=== PATIENT | male | born 1990 | race Caucasian/White ===

== ENCOUNTER → 2019-05-15 12:25 | Outpatient (CLI) | payer SELFPAY ==
[2019-05-15 12:54] VITALS: BP 106/68; PULSE 75; RESP 16; TEMP 36.8; O2SAT 97; BMI 22.6
--- NOTE | 2019-05-15 13:18 | HTC.HP3 ---
Problem List (1) Hemophilia B in male Status: Chronic Subjective Date of Service:: 05/15/19 Chief Complaint: F/u for Hemophilia B. History of Present Illness: 29y.o.man with hemophilia B, comes in for follow up. Did not use any factor replacement in the last year. Feels well, no dental problems. 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 (Acute) Past Surgical History (Last Reviewed 05/15/19 @ 12:52 by Patsy Brown) No history of previous surgery (Acute) Allergies/Adverse Reactions: Allergy/AdvReac Type Severity Reaction Status Date / Time aspirin AdvReac Severe BLEEDING Verified 05/15/19 12:52 Risk Factors Social History Social History: No changes Smoking Status Current every day smoker Tobacco Risk Data: Tobacco Risk Smoking Status Current every day smoker Type of tobacco: Smokeless tobacco usage: Never Items/Day: Year started: Years used: 10 Counseled to quit/cut down: Reason for no counseling performed: Reason for no pharmacotherapy: Tobacco use comments: Passive smoke exposure: Substance Risk Drug use: No Caffeine use [drinks/day]: Alcohol use: No Type of alcohol: Drinks per day: Has patient felt the need to cut down: Has the patient been annoyed by complaints: Has the patient felt guilty about drinking: Has the patient needed an eye condenser cleaner in the mornings: Comments: Review of Systems Constitutional:: Denies: Fever, Sweats, Weight loss, Appetite change, Chills Cardiovascular:: Denies: Chest pain, Palpitations, Dyspnea on exertion, Orthopnea, PND, Shortness of breath Respiratory: Denies: Cough, Hemoptysis, Shortness of Breath, Wheezing Gastrointestinal:: Denies: Abdominal pain, Nausea, Vomiting, Diarrhea, Constipation, Hematochezia Genitourinary: Denies: Dysuria, Hematuria, 15, Flank pain Musculoskeletal:: Denies: Back pain, Myalgia, Arthralgia Skin: Denies: Rash, Skin Changes, Wounds Neurological:: Denies: Headache, Dizziness, Visual changes, Tinnitus, Hearing loss Psychiatric: Denies: Anxiety, Depression, Homicidal Ideations, Suicidal Ideations Vital Signs Height 5 ft 8 in Weight: 67.54 kg Weight in Pounds 148.9 lbs Pulse Ox 97 Temperature 98.2 F Pulse Rate 75 Respiratory Rate 16 Blood Pressure 106/68 Blood Pressure Position Sitting - Physical Exam General: Alert, Oriented x3, No apparent distress HEENT: Atraumatic, PERRLA, EOMI, Normocephalic Oropharynx:: Dry mucosa Neck:: Supple, Trachea midline. Negative for: JVD, bilateral Cardiac:: Regular rate, Regular rhythm, Normal S1, Normal S2. Negative for: Murmur Lungs: Clear to auscultation, Excusion symmetrical. Negative for: Rhonchi, Wheezes Abdomen:: Bowel sounds x 4, Soft, Non-tender, Non-distended. Negative for: Hepatosplenomegaly Extremities:: Negative for: Cyanosis, Edema Neurological: Neuro grossly intact Skin:: Negative for: Lesions, Rash, Petechiae, Ecchymosis Psychiatric:: Appropriate affect, Euthymic Lymphatics:: Negative for: Cervical lymphadenopathy, Supraclavicular lymphadenopathy, Axillary lymphadenopathy Therapy ROM Screening - Subjective Subjective:: Pt states he is doing well- has no concerns at this time - Objective Right shoulder flex:: 150 Left shoulder flex:: 150 Right shoulder extension:: 60 Left shoulder extension:: 60 Right elbox flex/ext:: 145/0 Left elbox flex/ext:: 145/0 Right elbow circumference:: 25cm Left elbow circumference:: 25cm Right forearm sup/pron:: WNL Left forearm sup/pron:: WNL Right knee flexion:: 120 Left knee flexion:: 120 Right knee circumference:: 37cm Left knee circumference:: 35cm Right ankle dorsiflexion:: 20 Left ankle dorsiflexion:: 20 Right ankle Plan-flex:: 45 Left ankle Plan-flex:: 45 Right ankle circumference:: NT Left ankle circumference:: NT Right hip flexion:: 85 Left hip flexion:: 85 Right hip extension:: 20 Left hip extension:: 20 - Assessment Assessment:: pt demo all ROM WNL - no concerns at this time Assessment and Plan Hemophilia B, clinically stable. Plan is to continue expectant management. RTC 1 yr. Medications: Prescriptions This Visit Medication Instructions Recorded NK 05/15/19 Primary Care Provider: Shivam Rodriguez MD Referring Provider:
--- NOTE | 2019-05-15 13:22 | WMO.HTC_ITS ---
Problem List (1) Hemophilia B in male Status: Chronic Subjective Date of Service:: 05/15/19 Chief Complaint: F/u for Hemophilia B. History of Present Illness: 29y.o.man with hemophilia B, comes in for follow up. Did not use any factor repl acement in the last year. Feels well, no dental problems. 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 (Acute) Past Surgical History (Last Reviewed 05/15/19 @ 12:52 by Patsy Brown) No history of previous surgery (Acute) Allergies/Adverse Reactions: Allergy/AdvReac Type Severity Reaction Status Date / Time aspirin AdvReac Severe BLEEDING Verified 05/15/19 12:52 Risk Factors Social History Social History: No changes Smoking Status Current every day smoker Tobacco Risk Data: Tobacco Risk Smoking Status Current every day smoker Type of tobacco: Smokeless tobacco usage: Never Items/Day: Year started: Years used: 10 Counseled to quit/cut down: Reason for no counseling performed: Reason for no pharmacotherapy: Tobacco use comments: Passive smoke exposure: Substance Risk Drug use: No Caffeine use [drinks/day]: Alcohol use: No Type of alcohol: Drinks per day: Has patient felt the need to cut down: Has the patient been annoyed by complaints: Has the patient felt guilty about drinking: Has the patient needed an eye reject opener and filler in the mornings: Comments: Review of Systems Constitutional:: Denies: Fever, Sweats, Weight loss, Appetite change, Chills Cardiovascular:: Denies: Chest pain, Palpitations, Dyspnea on exertion, Orthopnea, PND, Shortness of breath Respiratory: Denies: Cough, Hemoptysis, Shortness of Breath, Wheezing Gastrointestinal:: Denies: Abdominal pain, Nausea, Vomiting, Diarrhea, Constipation, Hematochezia Genitourinary: Denies: Dysuria, Hematuria, 15, Flank pain Musculoskeletal:: Denies: Back pain, Myalgia, Arthralgia Skin: Denies: Rash, Skin Changes, Wounds Neurological:: Denies: Headache, Dizziness, Visual changes, Tinnitus, Hearing loss Psychiatric: Denies: Anxiety, Depression, Homicidal Ideations, Suicidal Id eations Vital Signs Height 5 ft 8 in Weight: 67.54 kg Weight in Pounds 148.9 lbs Pulse Ox 97 Temperature 98.2 F Pulse Rate 75 Respiratory Rate 16 Blood Pressure 106/68 Blood Pressure Position Sitting - Physical Exam General: Alert, Oriented x3, No apparent distress HEENT: Atraumatic, PERRLA, EOMI, Normocephalic Oropharynx:: Dry mucosa Neck:: Supple, Trachea midline. Negative for: JVD, bilateral Cardiac:: Regular rate, Regular rhythm, Normal S1, Normal S2. Negative for: Murmur Lungs: Clear to auscultation, Excusion symmetrical. Negative for: Rhonchi, Wheezes Abdomen:: Bowel sounds x 4, Soft, Non-tender, Non-distended. Negative for: Hepatosplenomegaly Extremities:: Negative for: Cyanosis, Edema Neurological: Neuro grossly intact Skin:: Negative for: Lesions, Rash, Petechiae, Ecchymosis Psychiatric:: Appropriate affect, Euthymic Lymphatics:: Negative for: Cervical lymphadenopathy, Supraclavicular lymphadenopathy, Axillary lymphadenopathy Therapy ROM Screening - Subjective Subjective:: Pt states he is doing well- has no concerns at this time - Objective Right shoulder flex:: 150 Left shoulder flex:: 150 Right shoulder extension:: 60 Left shoulder extension:: 60 Right elbox flex/ext:: 145/0 Left elbox flex/ext:: 145/0 Right elbow circumference:: 25cm Left elbow circumference:: 25cm Right forearm sup/pron:: WNL Left forearm sup/pron:: WNL Right knee flexion:: 120 Left knee flexion:: 120 Right knee circumference:: 37cm Left knee circumference:: 35cm Right ankle dorsiflexion:: 20 Left ankle dorsiflexion:: 20 Right ankle Plan-flex:: 45 Left ankle Plan-flex:: 45 Right ankle circumference:: NT Left ankle circumference:: NT Right hip flexion:: 85 Left hip flexion:: 85 Right hip extension:: 20 Left hip extension:: 20 - Assessment Assessment:: pt demo all ROM WNL - no concerns at this time Assessment and Plan Hemophilia B, clinically stable. Plan is to continue expectant management. RTC 1 yr. Medications: Prescriptions This Visit Medication Instructions Recorded NK 05/15/19 Primary Care Provider: Shivam Rodriguez MD Referring Provider:
== END ==
PROVIDERS: Visit Provider Internal Medicine Medical Oncology
DX: D67 Hereditary factor IX deficiency (principal)